=== PATIENT | male | born 1995 | race Caucasian/White ===

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

== ENCOUNTER 2017-03-08 10:44 | Emergency (ER) | payer BC | END 2017-03-08 12:42 | disposition home or self-care (01) | LOC: D.ER 10:44 | DX: R07.89 Other chest pain (principal); F17.200 Nicotine dependence, unspecified, uncomplicated ==

== ENCOUNTER 2020-03-27 15:24 | Emergency (ER) | payer MEDICAID ==
[~2020-03-27] VITALS: Ht 188 cm; Wt 95.5 kg
[2020-03-27 15:44] VITALS: Ht 188 cm; Wt 95.5 kg
[2020-03-27 16:18] LABS: BASOPHILS 0.7 % (0-2); EOSINOPHILS 1.7 % (0-7); HEMATOCRIT 47.5 % (42.0-54.0); HEMOGLOBIN 15.8 g/dL (13.5-17.5); IMMATURE GRANULOCYTES 0.3 % (0-5); LYMPHOCYTES 33.4 % (15-50); MCH 27.3 pg (26.0-34.0); MCHC 33.3 g/dL (31.0-37.0); MCV 82.2 fL (80.0-100.0); MEAN PLATELET VOLUME 9.9 fL (7.4-10.4); MONOCYTES 5.4 % (2-11); NEUTROPHILS 58.5 % (40-80); PLATELET COUNT 306 10x3/uL (130-400); RBC 5.78 10x6/uL (4.20-6.10); RDW 13.1 % (11.5-14.5); WBC 5.8 10x3/uL (4.8-10.8)
[2020-03-27 16:29] LABS: BILIRUBIN NEGATIVE (NEGATIVE); KETONE NEGATIVE (NEGATIVE); NITRITE NEGATIVE (NEGATIVE); UROBILINOGEN NORMAL mg/dL (< 2)
[2020-03-27 16:31] LABS: CALC OSMOLALITY 280 mosm/kg (275-300); CALCIUM 9.5 mg/dL (8.5-10.1); CARBON DIOXIDE 28.7 mmol/L (21.0-32.0); CHLORIDE - SERUM 104 mmol/L (98-107); CREATININE - SERUM 1.1 mg/dL (0.6-1.3); GLUCOSE 117 mg/dL (74-106); POTASSIUM - SERUM 4.3 mmol/L (3.5-5.1); SODIUM 139 mmol/L (136-145); UREA NITROGEN 18 mg/dL (7-18); eGFR NON AFRICAN AMERICAN 89 mL/min (90-120)
[2020-03-27 16:33] LABS: UDS - AMPHET NEGATIVE QUAL (NEGATIVE); UDS - BARB NEGATIVE QUAL (NEGATIVE); UDS - BENZO NEGATIVE QUAL (NEGATIVE); UDS - COCAINE NEGATIVE QUAL (NEGATIVE); UDS - OPIATE NEGATIVE QUAL (NEGATIVE); UDS - PCP NEGATIVE QUAL (NEGATIVE); UDS - THC POSITIVE QUAL (NEGATIVE)
[2020-03-27 16:38] LABS: ALBUMIN 4.1 g/dL (3.4-5.0); ALKALINE PHOSPHATASE 103 U/L (30-120); ALT (SGPT) 68 U/L (10-68); BILIRUBIN - TOTAL 0.31 mg/dL (0.2-1.3); PROTEIN - SERUM 8.1 g/dL (6.4-8.2)
--- NOTE | 2020-03-27 16:45 | NUR ---
PT HAS A HX OF BIPOLAR. PT DOES NOT TAKE MEDICATION FOR THIS AND IS NOT RECIEVING TREATMENT. PT HAS A HX OF CUTTING. PT DENIES SI/HI. PT ATTEMPTED SUICIDE BY OVERDOSE 3 MONTHS AGO BUT DID NOT RECIEVE TREATMENT. PT IS A MODERATE RISK PER ASSESSMENT. PT DOES NOT NEED A SITTER PER DR. COREY SINCE PT IS IN A [facility] ROOM AND HAS A VISITOR PRESENT. PT IS WILLING TO GET TREATMENT AND BE PLACED IN AN INPATIENT PSYCH FACILITY FOR HIS BIPOLAR AND CUTTING. PT ADMITS TO HAVING INCREASE ANXIETY AND STATED AT TIMES "I THINK I MIGHT BE HEARING VOICES BUT I CAN'T FIGURE OUT IF THEY ARE REAL OR NOT."
[2020-03-28 09:10] VITALS: BP 118/64
== END 2020-03-28 09:14 ==
LOC: D.ER 15:24
PROVIDERS: Family Medicine
DX: F31.9 Bipolar disorder, unspecified (principal); R45.6 Violent behavior; R44.0 Auditory hallucinations; F41.9 Anxiety disorder, unspecified